=== PATIENT | male | born 1980 | race Two or more races ===

== ENCOUNTER 2023-07-29 11:21 | Outpatient (REF) | payer MEDICAID, OTHER, SELFPAY ==
[2023-07-29 13:26] LABS: MANUAL DIFF FLAG NO
[2023-07-29 13:41] LABS: Basophils Percent Auto 0.4 % (0-2); Eosinophils Absolute Auto 0.4 X10*3/uL (0.0-0.4); Eosinophils Percent Auto 5.6 % (0-4); Hematocrit 47.1 % (42.0-52.0); Hemoglobin 15.7 g/dl (14.0-18.0); Imm Gran Abs Auto 0.01 X10*3/uL (0.00-0.03); Imm Gran Pct Auto 0.1 % (0.0-0.4); Lymphocytes Absolute Auto 2.2 X10*3/uL (1.2-4.9); Lymphocytes Percent Auto 29.2 % (20-40); Mean Corpuscular HGB Conc 33.3 g/dl (31.0-36.0); Mean Corpuscular Hemoglobin 29.3 pg (27.0-33.0); Mean Platelet Volume 10.8 fL (9.4-12.4); Monocytes Absolute Auto 0.6 X10*3/uL (0.1-1.2); Monocytes Percent Auto 7.9 % (2-11); Neutrophils Absolute Auto 4.4 x10*3/uL (2.0-8.3); Neutrophils Percent Auto 56.8 % (45-73); Platelet Count 215 X10*3/uL (160-400); Red Blood Count 5.35 X10*6/uL (4.60-5.80); Red Cell Distribution Width 13.4 % (11.0-16.0); White Blood Count 7.7 X10*3/uL (4.8-10.8)
[2023-07-29 14:02] LABS: Alanine Aminotransferase 59 U/L (0-40); Albumin Level 4.6 g/dL (3.5-5.0); Alkaline Phosphatase 66 U/L (39-117); Anion Gap 10 (12-20); Aspartate Amino Transferase 28 U/L (5-37); Bilirubin Total 0.4 mg/dL (0.0-1.0); Blood Urea Nitrogen 13 mg/dL (9-16); Calcium 9.5 mg/dL (8.4-10.2); Carbon Dioxide 26 mmol/L (22-29); Chloride 109 mmol/L (96-108); Cholesterol 318 mg/dL (<200); Estimated Glomerular Filt Rate > 60; Glucose Random 101 mg/dL (60-115); HDL Cholesterol 73 mg/dL (>40); LDL Cholesterol Calculated 217 mg/dL (<100); Potassium 4.3 mmol/L (3.3-5.1); Sodium 141 mmol/L (135-145); Total Protein 7.8 g/dL (6.5-8.0); Triglycerides 140 mg/dL (<150)
[2023-07-30 07:59] LABS: HIV AB/AG Nonreactive (Nonreactive); HIV Num 1 0.05 S/CO (0.00-0.99); ~HepC Num1 0.07 S/CO (0.00-0.79); ~Hepatitis C Antibody Nonreactive (Nonreactive)
== END 2023-07-29 11:22 | disposition home or self-care (01) ==
LOC: HO.HHCL 11:21
PROVIDERS: Visit Provider Internal Medicine Geriatric Medicine
DX: Z00.00 Encounter for general adult medical examination without abnormal findings (principal); Z11.59 Encounter for screening for other viral diseases; Z11.4 Encounter for screening for human immunodeficiency virus [HIV]; Z13.6 Encounter for screening for cardiovascular disorders
CPT/HCPCS: 36415; 80053; 80061; 85025; 86803; 87389

== ENCOUNTER 2023-08-13 10:09 | Emergency (ER) | payer MEDICAID, OTHER, SELFPAY ==
--- NOTE | ~2023-08-13 | XR_ITS ---
EXAMINATION: XR HIP, LEFT CLINICAL INFORMATION: Pain, left hip. COMPARISON: None available. TECHNIQUE: Two views of the left hip. FINDINGS: No fracture or subluxation. Mild joint space narrowing and subcortical sclerosis in both hips. Small well-corticated os acetabula in the superolateral left hip. Symmetric SI joints. Pubic symphysis and pelvic ring are maintained. No significant soft tissue abnormality. XR/XR hip LT min 2V IMPRESSION: 1. No fracture or subluxation. 2. 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
[2023-08-13 10:19] VITALS: BP 147/92; PULSE 75; RESP 18; TEMP 36.3; O2SAT 98; BMI 25.2
[2023-08-13 12:27] LABS: MANUAL DIFF FLAG NO
[2023-08-13 12:28] LABS: Basophils Percent Auto 0.4 % (0-2); Eosinophils Absolute Auto 0.3 X10*3/uL (0.0-0.4); Eosinophils Percent Auto 3.8 % (0-4); Hematocrit 45.9 % (42.0-52.0); Hemoglobin 15.4 g/dl (14.0-18.0); Imm Gran Abs Auto 0.02 X10*3/uL (0.00-0.03); Imm Gran Pct Auto 0.3 % (0.0-0.4); Lymphocytes Absolute Auto 2.4 X10*3/uL (1.2-4.9); Lymphocytes Percent Auto 30.6 % (20-40); Mean Corpuscular HGB Conc 33.6 g/dl (31.0-36.0); Mean Corpuscular Hemoglobin 29.3 pg (27.0-33.0); Mean Corpuscular Volume 87.4 fL (80.0-98.0); Mean Platelet Volume 10.1 fL (9.4-12.4); Monocytes Absolute Auto 0.6 X10*3/uL (0.1-1.2); Monocytes Percent Auto 8.3 % (2-11); Neutrophils Absolute Auto 4.4 x10*3/uL (2.0-8.3); Neutrophils Percent Auto 56.6 % (45-73); Platelet Count 209 X10*3/uL (160-400); Red Blood Count 5.25 X10*6/uL (4.60-5.80); Red Cell Distribution Width 13.4 % (11.0-16.0); White Blood Count 7.7 X10*3/uL (4.8-10.8)
[2023-08-13 12:29] LABS: Appearance Urine Clear; Color Urine Yellow; Glucose Urine UA Negative (Negative); Leukocyte Esterase Urine Trace (Negative); Nitrite Urine Negative (Negative); PH 6.5 (5.0-9.0); UMIC TRIGGER UACC YES; Urine Blood Negative (Negative); Urine Ketones Negative (Negative); Urine Protein Negative (Neg-Trace)
[2023-08-13 12:40] LABS: Bacteria Urine None Seen (None Seen); Hyaline Casts Urine 0-2 /LPF (0-2); RBC Urine 0-2 /HPF (0-2); Squamous Epithelial Cell Urine 0-2 /HPF (0-2); WBC Urine 0-5 /HPF (0-5)
[2023-08-13 12:41] LABS: Alanine Aminotransferase 31 U/L (0-40); Albumin Level 4.5 g/dL (3.5-5.0); Alkaline Phosphatase 70 U/L (39-117); Anion Gap 12 (12-20); Aspartate Amino Transferase 20 U/L (5-37); Bilirubin Total 0.5 mg/dL (0.0-1.0); Blood Urea Nitrogen 10 mg/dL (9-16); Calcium 9.5 mg/dL (8.4-10.2); Carbon Dioxide 24 mmol/L (22-29); Chloride 108 mmol/L (96-108); Creatinine Clr Calc Pharmacy 122.5; Estimated Glomerular Filt Rate > 60; Glucose Random 103 mg/dL (60-115); Potassium 4.2 mmol/L (3.3-5.1); Sodium 140 mmol/L (135-145); Total Protein 7.7 g/dL (6.5-8.0)
--- NOTE | 2023-08-13 21:15 | ED.EXTPRO ---
HPI - Extremity Problem General Chief complaint: Abdominal Pain Stated complaint: L Inguinal Pain Time Seen by Provider: 08/13/23 20:54 Source: patient Mode of arrival: ambulatory Limitations: no limitations History of Present Illness HPI Narrative: Patient complaining of atraumatic pain in his left groin area for last 2 days increases on ambulation no swelling or testicular pain no fever no chills Related Data Previous Rx's Medication Instructions Recorded cyclobenzaprine 10 mg tablet 10 mg PO Q8H #20 tabs 08/13/23 ibuprofen 600 mg tablet 600 mg PO Q6H PRN fever or pain 08/13/23 #30 tabs Allergies Allergy/AdvReac Type Severity Reaction Status Date / Time No Known Allergies Allergy Verified 08/13/23 10:26 Review of Systems Review of Systems: Yes all other systems are reviewed and are negative [facility] Social History Social History Alcohol intake: current Alcohol intake frequency: 0-2 drinks per day Alcohol type: beer Smoked in Last 30 Days: Yes Use of substances other than those prescribed or required for medical reasons: No Advance Directives: No Advance Directives Information Provided: No Physical Exam Vital Signs: Vital Signs: Last Vital Signs Temp 98.1 F 08/13/23 21:39 Pulse 71 08/13/23 21:39 Resp 16 08/13/23 22:00 BP 122/87 08/13/23 21:39 Pulse Ox 97 08/13/23 21:39 O2 Del Method Room Air 08/13/23 21:39 BMI result Body Mass Index 25.2 Appearance: Alert. Oriented X3. No acute distress. Eyes: No pallor ENT: Pharynx normal. Oral Mucosa moist Neck: Normal inspection. Neck supple. CVS: Normal heart rate and rhythm. Pulses normal. Respiratory: No respiratory distress. Equal air entry bilateral, no wheezing/rales/rhonchi Abdomen: Soft and nontender. Bowel sounds are present, no mass palpable, no CVA tenderness : Normal scrotum and testicles no hernia Skin: Skin warm and dry. Normal skin color. Normal skin turgor. Extremities: No lower extremity edema. No calf tenderness tenderness in left groin area no swelling increases on flexion of the left hip Neuro: Oriented X 3. No motor deficit. No sensory deficit.No cerebellar signs , cranial nerves II-XII intact Medications Administered Discontinued Medications Generic Name Dose Route Start Last Admin Trade Name Mar PRN Reason Stop Dose Admin Cyclobenzaprine HCl 10 mg 08/13/23 21:18 08/13/23 21:36 Cyclobenzaprine Hcl 10 Mg Tablet PO 08/13/23 21:19 10 mg ONCE ONE Administration Ketorolac Tromethamine 60 mg 08/13/23 21:16 08/13/23 21:36 Ketorolac Tromethamine 60 Mg/2 Ml Vial IM 08/13/23 21:17 60 mg ONCE ONE Administration Medical Decision Making Medical Decision Making [facility] Narrative: Patient with left groin strain clinically no history of trauma no signs of infection symptoms improved after Toradol will discharge patient home on ibuprofen and Flexeril x-ray negative for significant abnormality Differential Diagnosis Differential Diagnoses: The differential diagnosis associated with the presentation includes Lab Data [facility] Lab Attestation statement: I reviewed the patient's lab results. 08/13/23 12:11 08/13/23 12:11 Labs: Lab Results 08/13/23 Range/Units 12:11 WBC 7.7 (4.8-10.8) X10*3/uL RBC 5.25 (4.60-5.80) X10*6/uL Hgb 15.4 (14.0-18.0) g/dl Hct 45.9 (42.0-52.0) % MCV 87.4 (80.0-98.0) fL MCH 29.3 (27.0-33.0) pg MCHC 33.6 (31.0-36.0) g/dl RDW 13.4 (11.0-16.0) % Plt Count 209 (160-400) X10*3/uL MPV 10.1 (9.4-12.4) fL Immature Gran % (Auto) 0.3 (0.0-0.4) % Neut % (Auto) 56.6 (45-73) % Lymph % (Auto) 30.6 (20-40) % Glynn % (Auto) 8.3 (2-11) % Eos % (Auto) 3.8 (0-4) % Baso % (Auto) 0.4 (0-2) % Lymph # (Auto) 2.4 (1.2-4.9) X10*3/uL Glynn # (Auto) 0.6 (0.1-1.2) X10*3/uL Eos # (Auto) 0.3 (0.0-0.4) X10*3/uL Baso # (Auto) 0.0 (0.0-0.2) X10*3/uL Abs Immat Gran (auto) 0.02 (0.00-0.03) X10*3/uL Absolute Neuts (auto) 4.4 (2.0-8.3) x10*3/uL Absolute Nucleated RBC 0.000 (0.0-0.012) X10*3/uL Nucleated RBC % (auto) 0.0 (0.0-0.2) /100WBC Sodium 140 (135-145) mmol/L Potassium 4.2 (3.3-5.1) mmol/L Chloride 108 (96-108) mmol/L Carbon Dioxide 24 (22-29) mmol/L Anion Gap 12 (12-20) BUN 10 (9-16) mg/dL Creatinine 0.76 (0.5-1.4) mg/dL Estim Creat Clear Calc 122.5 Estimated GFR > 60 Random Glucose 103 (60-115) mg/dL Calcium 9.5 (8.4-10.2) mg/dL Total Bilirubin 0.5 (0.0-1.0) mg/dL AST 20 (5-37) U/L ALT 31 (0-40) U/L Alkaline Phosphatase 70 (39-117) U/L Total Creatine Kinase 195 H (38-174) U/L C-Reactive Protein 0.81 H (< or = 0.50) mg/dL Total Protein 7.7 (6.5-8.0) g/dL Albumin 4.5 (3.5-5.0) g/dL Urine Color Yellow Urine Appearance Clear Urine pH 6.5 (5.0-9.0) Ur Specific [place] 1.010 (1.005-1.025) Urine Protein Negative (Neg-Trace) mg/dL Urine Glucose (UA) Negative (Negative) mg/dL Urine Ketones Negative (Negative) mg/dL Urine Blood Negative (Negative) Urine Nitrite Negative (Negative) Ur Leukocyte Esterase Trace H (Negative) Urine RBC 0-2 (0-2) /HPF Urine WBC 0-5 (0-5) /HPF Ur Squamous Epith Cells 0-2 (0-2) /HPF Urine Bacteria None Seen (None Seen) Hyaline Casts 0-2 (0-2) /LPF Independent Interpretation I performed an independent interpretation of an: Plain X-Ray Radiology Impression Discussion of test interpretation with radiology: I have reviewed the radiologist's reading. Discharge Plan Discharge Clinical Impression: Strain of left psoas muscle Patient Disposition: Home, Self-Care Instructions: Groin Strain (ED) Additional Instructions: Apply ice packs Ibuprofen and muscle relaxant as prescribed Rest your left leg avoid going on stairs till heals completely Prescriptions: New cyclobenzaprine 10 mg tablet 10 mg PO Q8H Qty: 20 0RF ibuprofen 600 mg tablet 600 mg PO Q6H PRN (Reason: fever or pain) Qty: 30 0RF Stand Alone Forms: Work/School Release
[2023-08-13] MEDS: Ketorolac Tromethamine 60 MG/2 ML VIAL IM (21:36)
[2023-08-13] MEDS: Cyclobenzaprine HCl 10 MG TABLET PO (21:36)
[2023-08-13 21:39] VITALS: BP 122/87; PULSE 71; RESP 16; TEMP 36.7; O2SAT 97
[2023-08-13 21:48] LABS: C Reactive Protein 0.81 mg/dL (< or = 0.50)
[2023-08-13 22:00] VITALS: RESP 16
[2023-08-14] MEDS: oxyCODONE HCl Immed Release 5 MG TABLET 10 MG PO (00:02)
--- NOTE | 2023-08-14 00:02 | PC.NURSE ---
ASSUMED CARE OF PT AT 0932
[2023-08-14 00:04] VITALS: BP 140/96; PULSE 79; RESP 18; TEMP 36.4; O2SAT 96
== END 2023-08-14 00:13 | disposition home or self-care (01) ==
PROVIDERS: Emergency Provider Internal Medicine; PCP Internal Medicine Geriatric Medicine
DX: S39.011A Strain of muscle, fascia and tendon of abdomen, initial encounter (principal); M25.552 Pain in left hip; X58.XXXA Exposure to other specified factors, initial encounter; Y93.9 Activity, unspecified; Y92.9 Unspecified place or not applicable; Y99.8 Other external cause status; Z79.899 Other long term (current) drug therapy
CPT/HCPCS: 36415; 73502; 80053; 81001; 82550; 85025; 86140; 96372; 99284; J1885

== ENCOUNTER 2025-02-03 11:34 | Outpatient (REF) | payer MEDICAID, OTHER, SELFPAY ==
--- NOTE | ~2025-02-03 | XR_ITS ---
EXAMINATION: XR SHOULDER, LEFT CLINICAL INFORMATION: 8 days of pain and decreased range of motion after trauma COMPARISON: None available. TECHNIQUE: AP external rotation, Grashey, scapular Y, and axillary views of the left shoulder. FINDINGS: No acute cortical disruption or malalignment. No lytic or blastic lesions. No metallic or radiopaque foreign body. No soft tissue calcifications. XR/XR shoulder LT min 2V IMPRESSION: Normal x-ray left shoulder. Electronically signed by: Jong Brown MD 02/03/2025 01:59 PM EDT
--- OUTSIDE RECORDS SUMMARY | 2025-02-03 10:45 | XMS_ITS | Encounter Summary ---
Author Organization [employer] Address [address] [place] [address] [address] [place] [address] Care Team Providers Care Home Care Manager Name Role Phone Elmer Arrintgon MD Primary Care Provider [phone] Reason for Referral * Consultation (Routine) - Authorized Specialty Diagnoses / Procedures Referred By Dayo gee Referred To Contact Behavioral Health Diagnoses Chronic anxiety Elmer Arrington MD [address] [place] [id number] Phone: tel: fax: Referral ID Status Reason Start Date Expiration Date Visits Requested Visits Authorized [id number] Authorized Specialty Services Required 02/03/2025 02/03/2026 1 1 Reason for Visit * Reason Comments Follow-up Encounter Details Date Type Department Care Team (Late st Contact Info) Description 02/03/2025 10:45 AM EDT Office Visit [facility] MEDICINE [address] [place] [address] [phone] Elmer Arrington MD [address] [place] [address] High cholesterol (Primary Dx); Left shoulder pain, unspecified chronicity; Chronic anxiety Social History Tobacco Use Types Packs/Day Years Used Date Smoking Tobacco: Every Day Cigarettes Smokeless Tobacco: Never Tobacco Cessation:Ready to Q uit: Not Asked; Counseling Given: Not Answered Alcohol Use Standard Drinks/Week Comments Yes 0 (1 standard drink = 0.6 oz pur e alcohol) social Alcohol Answer Date Recorded How often do you have a drink containing alcohol ? 0 02/03/2025 How many drinks containing a lcohol do you have on a typical day when you are drinking? 1 02/03/2025 How often do you have six or more drinks on one occasion? 0 02/03/2025 Depression Answer Date Recorded Patient Health Questionnaire-9 Score 5 09/18/2024 Patient Health Questionnaire-9 Score 5 09/18/2024 Last PHQ-9: Questionnaire Data Not on file 0 09/18/2024 Housing Stability Answer Date Recorded What is your housing situation today? I have housing today, but I am worried about losing housing in the future 09/18/[address] you li ve. Do you have problems with any of the following? Oven or stove not working 09/18/2024 Food Insecurity Answer Date Recorded Within the past 12 months, y ou worried that your food would run out before you got money to buy more: Sometimes True 2024 Within the past 12 months,th e food you bought just didn't last and you didn't have enough money to get more: Sometimes True 09/18/2024 Transportation Answer Date Recorded In the past 12 months, has l ack of transportation kept you from medical appts, meetings, work or from getting things needed for daily living? Yes, it has kept me from non-medical meetings, work, or getting things that I need 09/18/2024 Utilities Answer Date Recorded In the past 12 months, has t he electric, gas, oil or water company threatened to shut off services in your home? I am not sure 09/18/2024 Depression Answer Date Recorded Patient Health Questionnaire-2 Score 2 09/18/2024 Internet Access Answer Date Recorded Internet Access Q1 No 09/18/2024 Internet Access Q2 Not on file 09/18/2024 Sex and Gender Information Value Date Recorded Sex Assigned at Male 03/26/2022 10:18 AM EDT Legal Sex Male 10:18 AM EDT Gender Identity Male 03/26/2022 10:18 AM EDT Sexual Orientation Choose not to disclose 2021 10:18 AM EDT documented as of this encounter Last Filed Vital Signs Vital Sign Reading Time Taken Comments Blood Pressure 124/82 02/03/2025 11:00 AM EDT Pulse 75 02/03/2025 11:00 AM EDT Temperature 36.2 C (97.1 F) 02/03/2025 11:00 AM EDT Respiratory Rate 14 02/03/2025 11:0 0 AM EDT Oxygen Saturation 98% 02/03/2025 11: 00 AM EDT Inhaled Oxygen Concentration - - Weight 94.3 kg (207 lb 12.8 oz) 025 11:00 AM EDT Height 172.7 cm (5' 8 ) 02/03/2025 11:0 0 AM EDT Body Mass Index 31.6 02/03/2025 11:00 AM EDT documented in this encounter Progress Notes * Elmer Arrington, - 02/03/2025 10:45 AM EDT Subjective Patient ID: Duy Brown is a 44 y.o. male who presents for Follow-up. Patient is returning to medical care. I have not seen him in more than a year. The patient has a past medical history of asthma, smoking, high cholesterol and anxiety. The patient tells me that he cut down on the smoking significantly and is down to 2 or 3 cigarettes/day and his asthma symptoms have resolved almost completely. He stopped using atorvastatin and his LDL just to be above 200 in the past. He has blood work pending that he is recommended to do to recheck his CMP and lipids. He complains of 1 week of left shoulder pain after a fall. He does not have any swelling. No left shoulder deformity. He has slight decreased range of motion of the left shoulder since the fall. He complains of intense anxiety. The patient has requested a letter to be permitted to keep his 2 emotional support pet dogs in his apartment. Review of Systems Constitutional: Negative for chills, fatigue and fever. HENT: Negative for sore throat. Respiratory: Negative for cough, chest tightness and shortness of breath. Cardiovascular: Negative for chest pain, palpitations and leg swelling. Gastrointestinal: Negative for abdominal pain and blood in stool. Musculoskeletal: See HPI Psychiatric/Behavioral: The patient is nervous/anxious. Objective Vitals: 02/03/25 1100 BP: 124/82 BP Location: Left arm Patient Position: Sitting BP Cuff Size: Large adult Pulse: 75 Resp: 14 Temp: 97.1 ??F (36.2 ??C) TempSrc: Temporal SpO2: 98% Weight: 207 lb 12.8 oz (94.3 kg) Height: 5' 8 (1.727 m) Physical Exam Constitutional: Appearance: Normal appearance. Cardiovascular: Rate and Rhythm: Normal rate and regular rhythm. Heart sounds: No murmur heard. Pulmonary: Effort: Pulmonary effort is normal. No respiratory distress. Breath sounds: No wheezing, rhonchi or rales. Abdominal: Palpations: Abdomen is soft. Tenderness: There is no abdominal tenderness. Musculoskeletal: Right shoulder: Normal. Left shoulder: Tenderness present. No swelling, deformity, effusion or laceration. Decreased range of motion. Right lower leg: No edema. Left lower leg: No edema. Neurological: Mental Status: He is alert. Assessment/Plan Diagnoses and all orders for this visit: High cholesterol Comments: I recommended to go for the blood work ordered for him back in August. I explained the patient that I will restart him on statin for primary prevention of cardiovascular disease if needed based on theresults. Left shoulder pain, unspecified chronicity Comments: I suspect left shoulder sprain. I prescribed naproxen to use as needed and recommended evaluation with x-ray of the left shoulder. Orders: - XR Shoulder 2+ Views Left; Future Chronic anxiety Comments: Referral to behavioral health and letter for landlord so the patient can keep his 2 pet dogs. Orders: - Referral to Behavioral Health; Future Other orders - naproxen (Naprosyn) 500 MG tablet; Take 1 tablet (500 mg) by mouth 2 times daily. Future Appointments Date Time Provider Department Center 05/31/2025 3:00 PM Ann JAMISON DENT [facility] documented in this encounter Plan of Treatment Upcoming Encounters Date Type Department Care Team (Late st Contact Info) Description 05/31/2025 3:00 PM EST Office Visit [facility] ADULT DENTAL [address] [place] [address] Ann Quinonez [address] [place] [address] Scheduled Referrals Name Type Priority Associated Diagnoses Order Schedule Referral to Behavioral Health Outpatient Referral Routine Chronic anxiety Expected: 02/03/2025 (Approximate), Expires: 08/03/2026 documented as of this encounter Procedures Procedure Name Priority Date/Time Associated Diagnosis Comments XR SHOULDER 2+ VIEWS LEFT Routine 02/03/2025 1:50 PM EDT Left shoulder pain, unspecified chronicity documented in this encounter Results * XR Shoulder 2+ Views Left (02/03/2025 1:50 PM EDT) Anatomical Region Laterality Modality Upper Extremities, Shoulder Left Radi ographic Imaging 02/03/2025 1:50 PM EDT Narrative 02/03/2025 2:02 PM EDT [address] [address] XRay Report Signed Patient: Duy Sheppard MR# : [id number] : 1980 Acct:[id number] Age/Sex: 44 / M ADM Date: 02/03/25 Loc: [facility] Attending Dr: Elmer Arrington MD Ordering Physician: Elmer Arrington MD Date of Service: 02/03/25 Procedure(s): XR shoulder LT min 2V Accession Number(s): [id number] cc: Elmer Arrington MD Reason for Exam: 8 days of pain and decreased range of motion after trauma EXAMINATION: XR SHOULDER, LEFT CLINICAL INFORMATION: 8 days of pain and decreased range of motion after trauma COMPARISON: None available. TECHNIQUE: AP external rotation, Grashey, scapular Y, and axillary views of the left shoulder. FINDINGS: No acute cortical disruption or malalignment. No lytic or blastic lesions. No metallic or radiopaque foreign body. No soft tissue calcifications. XR/XR shoulder LT min 2V IMPRESSION: Normal x-ray left shoulder. Electronically signed by: Jong Brown MD 02/03/2025 01:59 PM EDT Dictated By: Jong Shrestha MD Signed By: <Electronically signed by Jong Mendez MD in OV> 02/03/25 1359 DD/ 1350 TD/TT: 02/03/25 1353 Service Writer Advisor: Procedure Note Donotuseinterpreter, Image - 02/03/2025 [facility] [address] [place] [address] XRay Report Signed Patient: Duy Sheppard [facility]# : [id number] : 1980Acct:[id number] Age/Sex: 44 / MADM Date: 02/03/25 Loc: [facility] Attending Dr: Elmer Arrington MD Ordering Physician: Elmer Arrington MD Date of Service: 02/03/25 Procedure(s): XR shoulder LT min 2V Accession Number(s): [id number] cc: Elmer Arrington MD Reason for Exam: 8 days of pain and decreased range of motion aftertrauma EXAMINATION: XR SHOULDER, LEFT CLINICAL INFORMATION: 8 days of pain and decreased range of motion after trauma COMPARISON: None available. TECHNIQUE: AP external rotation, Grashey, scapular Y, and axillary views of the left shoulder. FINDINGS: No acute cortical disruption or malalignment. No lytic or blastic lesions. No metallic or radiopaque foreign body. No soft tissue calcifications. XR/XR shoulder LT min 2V IMPRESSION: Normal x-ray left shoulder. Electronically signed by: Jong Brown MD 02/03/2025 01:59 PM EDT RP Dictated By: Jong Shrestha MD Signed By: <Electronically signed by Jong Mendez MDin OV> 02/03/25 1359 DD/ 1350 TD/TT: 02/03/25 1353 Service Writer Advisor: Elmer Arrington MD IMG XR PROCEDURES Final Result documented in this encounter Visit Diagnoses Diagnosis High cholesterol- Primary Pure hypercholesterolemia Left shoulder pain, unspecified chronicity Chronic anxiety Anxiety state, unspecified documented in this encounter Additional Health Concerns Assessment Noted Time PHQ-9 Depression Total Score: 5 09/19/19 25 11:00 AM EDT documented as of this encounter Care Teams Home Care Manager Relationship Specialty Start Date End Date Elmer Arrington MD [address] [place] [address] PCP - General Family Medicine 08/30/15 documented as of this encounter
[2025-02-03 14:20] LABS: Alanine Aminotransferase 45 U/L (0-40); Albumin Level 4.5 g/dL (3.5-5.0); Alkaline Phosphatase 66 U/L (39-117); Anion Gap 13 (12-20); Aspartate Amino Transferase 33 U/L (5-37); Blood Urea Nitrogen 14 mg/dL (9-16); Calcium 8.9 mg/dL (8.4-10.2); Carbon Dioxide 25 mmol/L (22-29); Chloride 107 mmol/L (96-108); Cholesterol 307 mg/dL (<200); Estimated Glomerular Filt Rate > 60; HDL Cholesterol 68 mg/dL (>40); Potassium 4.3 mmol/L (3.3-5.1); Sodium 141 mmol/L (135-145); Total Protein 7.4 g/dL (6.5-8.0); Triglycerides 149 mg/dL (<150)
--- OUTSIDE RECORDS SUMMARY | 2025-02-03 14:46 | XMS_ITS | Encounter Summary ---
Author Organization [employer] Address [address] [place] [address] Care Team Providers Care Nurses Superintendent Name Role Phone Name, Elmer MEDINA Primary Care Provider [phone] Encounter Details Date Type Department Care Team (Latest Contact Info) Description 02/03/2025 Travel Social History Tobacco Use Types Packs/Day Years Used Date Smoking Tobacco: Every Day Cigarettes Smokeless Tobacco: Never Alcohol Use Standard Drinks/Week Comments Yes 0 [...] AM EDT documented as of this encounter Plan of Treatment Upcoming Encounters Date Type Department Care Team (Late st Contact Info) Description 05/31/2025 3:00 PM EST Office Visit [facility] ADULT DENTAL [address] [place] [address] DeviChristianAnn [address] [place] [address] documented as of this encounter Visit Diagnoses Not on filedocumented in this encounter Additional Health Concerns Assessment Noted Time PHQ-9 Depression Total Score: 5 09/19/19 25 11:00 AM EDT documented as of this encounter Care Teams Nurses Superintendent Relationship Specialty Start Date End Date Name, MD Elmer [address] [place] [address] PCP - General Family Medicine 08/30/15 documented as of this encounter
--- OUTSIDE RECORDS SUMMARY | 2025-02-03 14:46 | XMS_ITS | Clinical Summary ---
Author Organization [facility] Address [address] [place] [phone] Phone Care Team Providers Care Home Connect Lpn Name Role Phone Unknown, Unknown Primary Care Provider Angelique navas Allergies No known active allergies Medications No known medications Immunizations Immunization Administration Dates Next Due Tdap 10/27/2024 Social History Tobacco Use Types Packs/Day Years Used Date Smoking Tobacco: Every Day Smokeless Tobacco: Never Alcohol Use Standard Drinks/Week Comments Yes 0 (1 standard drink = 0.6 oz pur e alcohol) Education Answer Date Recorded Are you interested in more education? Not on morenita e 10/28/2024 Are you concerned about learning? Not on file 10/28/2024 No 10/28/2024 No 10/28/2024 Digital Access Answer Date Recorded No 10/28/2024 No 10/28/2024 Reliable internet access at home? Not on file 10/28/2024 Device with a working camera? Not on file Intimate Partner Violence Answer Date R ecorded Are you denied basic needs s uch as food, clothing, or medical care? No 10/27/2024 In the past 12 months have y ou been in a relationship with a person who hurts, threatens, or tries to control you? No 10/27/2024 Are you denied basic needs s uch as food, clothing, or medical care? No 10/27/2024 In the past 12 months have y ou been in a relationship with a person who hurts, threatens, or tries to control you? No 10/27/2024 Sex and Gender Information Value Date Recorded Sex Assigned at Male 10/05/2017 1:07 PM EDT Legal Sex Male 10:29 PM EDT Gender Identity Male 10/05/2017 1:07 PM EDT Sexual Orientation Straight 10/05/2017 1: 07 PM EDT Last Filed Vital Signs Vital Sign Reading Time Taken Comments Blood Pressure 139/94 10/27/2024 10:03 PM EDT Pulse 94 10/27/2024 10:03 PM EDT Temperature 36.4 C (97.5 F) 10/27/2024 10:03 PM EDT Respiratory Rate 18 10/27/2024 10:03 PM EDT Oxygen Saturation 95% 10/27/2024 10:03 PM EDT Inhaled Oxygen Concentration - - Weight 81.6 kg (180 lb) 10/27/2024 10:03 PM EDT Height 180.3 cm (5' 11 ) 10/27/2024 10:03 PM EDT Body Mass Index 25.1 10/27/2024 10:03 PM EDT Plan of Treatment Health Maintenance Due Date Last Done Comments DEPRESSION SCREENING 1992 SMOKING Hx and SMOKELESS TOBACCO SCREENING 1993 HEPATITIS C SCREENING 1998 HIV ONE-TIME SCREENING (18-6 5 YEARS) 1998 PNEUMOCOCCAL VACCINES (0-49 years) (2 of 2 - PCV) 07/08/2018 07/08/2017 SCREENING FOR DIABETES 08/06/2021 08/06/2018 INFLUENZA VACCINE (#1) 2024 COVID-19 VACCINE (1 - 2023-2 5 season) 2025 LIPID PANEL 07/28/2028 07/29/2023 Adult Td,Tdap Booster 10/27/2034 10/27/2024 , 05/07/2016 HEPATITIS A VACCINES Aged Out No long er eligible based on patient's age to complete this topic HIB VACCINES Aged Out No longer eligi ble based on patient's age to complete this topic MENINGOCOCCAL VACCINES (ACWY) Aged Out No longer eligible based on patient's age to complete this topic MENINGOCOCCAL VACCINES (B) Aged Out N o longer eligible based on patient's age to complete this topic Medical Devices Not on file [place] [employer] [place] [facility] NET [place]ULL [place] [facility] SAFET[facility] NET FULL [place] [employer] [place] F[place] [facility] NET [facility]ULL [facility] SAFETY NET FULL [place] [employer] SAFETY NET FULL [place] [employer] NET FULL [facility] LIMITED FULL Care Teams Home Connect Lpn Relationship Specialty Start Date End Date Unknown, Unknown, PCP - General 08/05/18 Additional Source Comments The information contained in this document represents components of the legal health record. It is not the complete legal health record.[facility]
--- OUTSIDE RECORDS SUMMARY | 2025-02-03 14:46 | XMS_ITS | Encounter Summary ---
Author Organization [employer] [facility] Address [address] [place] [address] [address] [place] [address] Care Team Providers Care Nitrating Acid Mixer Name Role Phone NameElmer MD Primary Care Provider [phone] Reason for Visit * Reason Comments Med Refill Encounter Details Date Type Department Care Team (Late st Contact Info) Description 06/26/2022 Refill [facility] MEDICINE [address] [place] [address] Name, MD Elmer [address] [place] [address] Asthma, unspecified asthma severity, unspecified whether complicated, unspecified whether persistent Social History Tobacco Use Types Packs/Day Years Used Date Smoking Tobacco: Never Assessed Sex and Gender Information Value Date Recorded [...] Description 05/31/2025 3:00 PM EST Office Visit [facility] ADULT DENTAL [address] [place] [phone] Christian Quinonezaris [address] [place] [address] documented as of this encounter Visit Diagnoses Diagnosis Asthma, unspecified asthma severity, unspecified whether complicated, unspecified whether persistent documented in this encounter Care Teams Nitrating Acid Mixer Relationship Specialty Start Date End Date Name, MD Elmer [address] [place] [address] PCP - General Family Medicine 08/30/15 documented as of this encounter
--- OUTSIDE RECORDS SUMMARY | 2025-02-03 14:46 | XMS_ITS | Encounter Summary ---
Author Organization [employer] Address [address] [place] [address] [address]t [place] [address] Care Team Providers Care Solar Tech Name Role Phone Name, Elmer MEDINA Primary Care Provider [phone] Encounter Details Date Type Department Care Team (Late st Contact Info) Description 08/22/2022 Abstract [facility] ADULT DENTAL [address] [place], [place] [phone] Devi Ann [address] [place] [address] Social History Tobacco Use Types Packs/Day Years Used Date Smoking Tobacco: Former Cigarettes Smokeless Tobacco: Never Depression Answer Date Recorded Patient Health Questionnaire-9 Score 0 07/19/2022 Depression Answer Date Recorded Patient Health Questionnaire-2 Score 0 07/19/2022 Sex and Gender Information Value Date Recorded Sex Assigned at Male 03/26/2022 10:18 AM EDT Legal Sex Male 10:18 AM EDT Gender Identity Male 03/26/2022 10:18 AM EDT Sexual Orientation Choose not to disclose 2021 10:18 AM EDT COVID-19 Exposure Response Date Recorded In the last 10 days, have yo u been in contact with someone who was confirmed or suspected to have Coronavirus/COVID-19? No / Unsure 07/26/2022 9:03 AM EST documented as of this encounter Plan of Treatment Upcoming Encounters Date Type Department Care Team (Late st Contact Info) Description 05/31/2025 3:00 PM EST Office Visit [facility] ADULT DENTAL [address] [place], [place] [phone] Devi Ann [address] [place] [address] documented as of this encounter Visit Diagnoses Not on filedocumented in this encounter Additional Health Concerns Assessment Noted Time PHQ-9 Depression Total Score: 0 07/19/19 23 11:35 AM EST documented as of this encounter Care Teams Solar Tech Relationship Specialty Start Date End Date Name, MD Elmer [address] [place] [address] PCP - General Family Medicine 08/30/15 documented as of this encounter
--- OUTSIDE RECORDS SUMMARY | 2025-02-03 14:46 | XMS_ITS | Encounter Summary ---
Author Organization [employer] Address [address] [facility] 7t [place] [address] Care Team Providers Care Health Physics Technician Name Role Phone Name, Elmer MEDINA Primary Care Provider [phone] Reason for Visit * Reason Onset Date Comments Chart Prep 02/01/2025 Encounter Details Date Type Department Care Team (Late st Contact Info) Description 02/01/2025 Telephone [facility] CHC MED & PEDS [address] [place], [place] [phone] Name, MD Elmer [address] [place] [address] Chart Prep Social History Tobacco Use Types Packs/Day Years Used Date Smoking Tobacco: Every Day Cigarettes Smokeless Tobacco: Never Alcohol Use Standard Drinks/Week Comments Yes 0 (1 standard drink = 0.6 oz pur e alcohol) social Depression Answer Date Recorded Patient Health Questionnaire-9 [...] AM EDT documented as of this encounter Miscellaneous Notes * Telephone Encounter - Nikko Leggett [place] - 02/01/2025 9:01 AM EDT Chart Prep Labs: done Images: not applicable Referrals: complete Vaccines due: Covid, Flu, and HPV Screenings: Alcohol/Substance Use Screening Overdue care gaps: SBIRT, Disability screen, and Tobacco documented in this encounter Plan of Treatment Upcoming Encounters Date Type Department Care Team (Late st Contact Info) Description 05/31/2025 3:00 PM EST Office Visit [facility] ADULT DENTAL [address] [place] [address] Ann Quinonez [address] [place] [address] documented as of this encounter Visit Diagnoses Not on filedocumented in this encounter Additional Health Concerns Assessment Noted Time PHQ-9 Depression Total Score: 5 09/19/19 25 11:00 AM EDT documented as of this encounter Care Teams Health Physics Technician Relationship Specialty Start Date End Date Name, MD Elmer [address] [place] [address] PCP - General Family Medicine 08/30/15 documented as of this encounter
--- OUTSIDE RECORDS SUMMARY | 2025-02-03 14:46 | XMS_ITS | Clinical Summary ---
Author Organization [employer] Address [address] [place] [address] 7t [place] [address] Care Team Providers Care Digital Project Manager Name Role Phone Name, Elmer MEDINA Primary Care Provider [phone] Allergies No known active allergies Medications albuterol 108 (90 Base) MCG/ACT inhalerIndicat ions:Asthma, unspecified asthma severity, unspecified whether complicated, unspecified whether persistent Inhale 2 puffs every 6 (six) hours if needed for wheezing. 18 g 3 06/24/19 25 Active naproxen (Naprosyn) 500 MG tablet Take 1 tablet (500 mg) by mouth 2 times daily. 20 tablet 02/04/20 25 025 Active nicotine (Nicoderm CQ) 14 MG/24HR patch Place 1 patch on the skin 1 (one) time each day at the same time. 42 patch 08/13/19 025 Discontinued nicotine (Nicoderm CQ) 7 MG/24HR patch Place 1 patch on the skin 1 (one) time each day at the same time. 14 patch 08/13/19 24 025 Discontinued nicotine polacrilex (Commit) 2 MG lozenge Dissolve 1 lozenge (2 mg) in the mouth if needed for smoking cessation. 100 lozenge 08/13/19 025 Discontinued(Th erapy completed) acetaminophen (Tylenol) 500 MG tablet Take 2 tablets (1,000 mg) by mouth every 6 (six) hours if needed for moderate pain or fever for up to 25 doses. 40 tablet 01/01/20 24 09/10/2 025 Discontinued Mometasone Furoate (Asmanex HFA) 100 MCG/ACT aerosolIndicat ions:Asthma, unspecified asthma severity, unspecified whether complicated, unspecified whether persistent Inhale 1 Act (100 mcg) 2 times daily. 13 g 06/24/19 025 Discontinued( erapy completed) fluticasone (Flonase) 50 MCG/ACT nasal sprayIndicatio ns:Seasonal allergic rhinitis, unspecified trigger Administer 1 spray into each nostril Once per day. 16 g 3 06/24/19 025 Discontinued( erapy completed) Spacer/Aero-Ho lding Chambers (OptiChamber Antoni[place]) misc 1 each every 4 (four) hours if needed (asthma). 1 each 06/24/19 025 Discontinued( erapy completed) ibuprofen 400 MG tablet Take 1 tablet (400 mg) by mouth every 6 (six) hours if needed for moderate pain or fever for up to 30 doses. 30 tablet 06/24/19 025 Discontinued( erapy completed) atorvastatin (Lipitor) 20 MG tabletIndicati ons:Hyperchole sterolemia Take 1 tablet (20 mg) by mouth Once per day. 30 tablet 11 09/19/19 025 Discontinued( erapy completed) cetirizine (ZyrTEC) 10 MG tabletIndicati ons:Seasonal allergic rhinitis, unspecified trigger Take 1 tablet (10 mg) by mouth Once per day. 90 tablet 3 09/19/19 025 Discontinued( erapy completed) naproxen (Naprosyn) 500 MG tablet Take 1 tablet (500 mg) by mouth 2 times daily. 20 tablet 02/04/20 025 Discontinued( erapy completed) Active Problems Problem Noted Date Diagnosed Date High cholesterol 02/03/2025 Bleeding gums 12/19/2023 Localized gingival recession 12/19/2023 Dental caries 12/19/2023 Missing teeth, acquired 12/19/2023 Umbilical hernia without obstruction or gangrene 08/26/2023 Overview (10/31/2023): Last Assessment & Plan: Fat-containing umbilical hernia, only mildly symptomatic. No history of bowel incarceration, and the risk of bowel incarceration is low. The overall risks of surgery (bleeding, bowel injury, pain from mesh and fixation sutures/tacks, mesh contamination/infection requiring explantation, creation of technical difficulty in gaining abdominal access for future surgeries in the presence of a piece of synthetic mesh in the umbilical area, etc.) with the potential benefit. Patient complains some abdominal tingling sensation, which is totally unrelated to the hernia. Following the above discussion, the patient is willing to continue watchful waiting and to wear an abdominal binder for comfort. Follow-up if the hernia enlarges significantly and/or becomes more symptomatic. Mild intermittent asthma without complication Tobacco user 07/29/2023 Seasonal allergic rhinitis 10/09/2022 Periodontal disease 07/26/2022 Dental calculus 07/26/2022 Umbilical hernia 07/19/2022 Pruritus 05/06/2017 Allergic rhinitis 10/25/2016 Anxiety 01/02/2016 Panic attack 01/02/2016 Resolved Problems Problem Noted Date Diagnosed Date Resolved Date Mild persistent allergic asthma 10/09/2022 07/29/2023 Bleeding gums 07/26/2022 07/29/2023 Rectal hemorrhage 08/13/2018 07/29/2023 Mild intermittent asthma 05/06/2017 Wheezing 10/25/2016 07/29/2023 Encounters Date Type Department Care Team Description 02/03/2025 10:45 AM EDT Office Visit [facility] MEDICINE [address] [place] [address] Elmer Arrington MD High cholesterol (Primary Dx); Left shoulder pain, unspecified chronicity; Chronic anxiety 02/03/2025 Travel 02/01/2025 Telephone [facility] CHC MED & PEDS [address] [place], [place] [phone] Elmer Arrington MD Chart Prep 12/10/2024 9:00 AM EDT Office Visit [facility] ADULT DENTAL [address] [place] [address] Ann Quinonez Localized gingival recession (Primary Dx); Dental calculus; Periodontal disease from Last 3 Months Immunizations Immunization Administration Dates Next Due Influenza Injectable Quadriv alant Preservative Free IIV4 MDCK 08/02/2023 Influenza injectable quadriv alent IIV4 with preservative 07/08/2017,03/01/2016 Influenza injectable quadrivalent preservative f ree 03/21/2021 Pneumococcal Conjugate PCV 20 07/29/2023 Pneumococcal Polysaccharide PPSV23 07/08/2017 Tdap 05/07/2016 Social History Tobacco Use Types Packs/Day Years [...] not to disclose 2021 10:18 AM EDT Last Filed Vital Signs Vital Sign [...] Mass Index 31.6 02/03/2025 11:00 AM EDT Plan of Treatment Upcoming Encounters Date Type Department Care Team (Late st Contact Info) Description 05/31/2025 3:00 PM EST Office Visit [facility] ADULT DENTAL [address] [place] [address] Devi, Ann [address] [place] [address] Health Maintenance Due Date Last Done Comments Family Planning (PISQ) 10/05/1995 HPV Vaccines (1 - Male 3-dose series) 10/05/1995 Dental Oral Exam 06/21/2024 12/19/2023 Dental Prophylaxis 06/21/2024 12/19/2023, 07/26/2022 Dental X-Ray: Full Mouth 10/20/2024 10/19/2021 Dental X-Ray: Bitewings 12/19/2024 12/19/2023 COVID-19 Vaccine ( - season) 2025 12/14/2020, 11/17/2020 Influenza Vaccine (#1) 2025 , 03/21/2021, 07/08/2017, Additional history exists Depression Screening 09/18/2025 09/18/2024, 09/19/19 Hepatitis B Vaccines (1 of 3 - 19+ 3-dose series) 09/18/2025 Postponed from 10/05/1999 (Patient Refused) SDOH Screening 09/18/2025 09/18/2024 Alcohol/Substance Use Screening 02/03/2026 02/03/2025 Disability Screening 02/03/2026 02/03/2025 Tobacco Screening 02/03/2026 02/03/2025 Lipid Panel 02/03/2030 02/03/2025, 07/29/2023 Zoster Vaccines (1 of 2) 2030 DTaP/Tdap/Td Vaccines (3 - Td or Tdap) 10/27/2034 10/27/2024, 05/07/2016 RSV Patients and Patients Aged 60 years or older (1 - 1-dose 75+ series) 10/05/2055 HIV Screening Completed 07/29/2023 Hepatitis C Screening Completed 07/29/2023 Pneumococcal Vaccine: Pediatrics (0 to 5 Years) and At-Risk Patients (6 to 49) Years Completed 07/29/2023, 07/08/2017 HIB Vaccines Aged Out No longer eligi ble based on patient's age to complete this topic Hepatitis A Vaccines Aged Out No long er eligible based on patient's age to complete this topic IPV Vaccines Aged Out No longer eligi ble based on patient's age to complete this topic Meningococcal B Vaccine Aged Out No l onger eligible based on patient's age to complete this topic Meningococcal Vaccine Aged Out No raghavendra anushka eligible based on patient's age to complete this topic RSV under 20 months Aged Out No longe r eligible based on patient's age to complete this topic Rotavirus Vaccines Aged Out No longer eligible based on patient's age to complete this topic Procedures Procedure Name Priority Date/Time Associated Diagnosis Comments XR SHOULDER 2+ VIEWS LEFT Routine 02/03/2025 1:50 PM EDT Left shoulder pain, unspecified chronicity COMPREHENSIVE METABOLIC PANEL Routine 02/03/2025 11:51 AM EDT Healthcare maintenance LIPID PANEL, STANDARD Routine 02/03/2025 11:51 AM EDT Healthcare maintenance CASE PRESENTATION, DETAILED AND EXTENSIVE TREATMENT PLANNING Routine 12/10/2024 9:00 AM EDT Localized gingival recession Dental calculus Periodontal disease ORAL HYGIENE INSTRUCTIONS Routine 12/10/2024 9:00 AM EDT Localized gingival recession Dental calculus Periodontal disease LR PERIODONTAL SCALING AND ROOT PLANING - 1 TO 3 TEETH PER QUADRANT Routine 12/10/2024 9:00 AM EDT Dental calculus Periodontal disease UR PERIODONTAL SCALING AND ROOT PLANING - 1 TO 3 TEETH PER QUADRANT Routine 12/10/2024 9:00 AM EDT Dental calculus Periodontal disease Full PROPHYLAXIS - ADULT Routine 12/19/2023 1:00 PM EDT Periodontal disease Bleeding gums Dental calculus BITEWINGS - 4 RADIOGRAPHIC IMAGES Routine 12/19/2023 1:00 PM EDT Periodontal disease Bleeding gums Localized gingival recession Dental calculus Dental caries PERIODIC ORAL EVALUATION - ESTABLISHED PATIENT Routine 12/19/2023 1:00 PM EDT HEPATITIS C ANTIBODY Routine 07/29/2023 11:24 AM EST Need for hepatitis C screening test HIV 1/2 ANTIGEN/ANTIBODY, FOURTH GENERATION W/RFL Routine 07/29/2023 11:24 AM EST Screening for HIV (human immunodeficiency virus) from Last 3 Months or Most Recently Relevant to Health Maintenance Results * XR Shoulder 2+ Views Left (02/03/2025 1:50 PM EDT) Anatomical Region Laterality Modality Upper Extremities, Shoulder Left Radi ographic Imaging 02/03/2025 1:50 PM EDT Narrative 02/03/2025 2:02 PM EDT [address] [address] XRay Report Signed Patient: Duy Sheppard MR# : [id number] : 1980 Acct:[id number] Age/Sex: 44 / M ADM Date: 02/03/25 Loc: HO.HH Attending Dr: Elmer Arrington MD Ordering Physician: Elmer Arrington MD Date of Service: 02/03/25 Procedure(s): XR shoulder LT min 2V Accession Number(s): [id number] cc: Elmer Arrington MD Reason for Exam: [...] 02/03/25 1359 DD/ 1350 TD/TT: 02/03/25 1353 Mail Room: Procedure Note Donotuseinterpreter, Image - 02/03/[address] [address] XRay Report Signed Patient: Duy Sheppard [facility]# : [id number] : 1980Acct:[id number] Age/Sex: 44 / MADM Date: 02/03/25 Loc: HO.HHCL Attending Dr: Elmer Arrington MD Ordering Physician: Elmer Arrington MD Date of Service: 02/03/25 Procedure(s): XR shoulder LT min 2V Accession Number(s): [id number] cc: Elmer Arrington MD Reason for Exam: [...] 02/03/25 1359 DD/ 1350 TD/TT: 02/03/25 1353 Mail Room: Elmer Arrington MD IMG XR PROCEDURES Final Result * (ABNORMAL) Lipid Panel, Standard (02/03/2025 11:51 AM EDT) Triglycerides 149 <150 mg/dL [facility] Comment:Desirable Triglyceri de: less than 150 mg/dLBorderline High Triglyceride 150-199 mg/dLHigh Triglyceride: 200-499 mg/dLVery High Triglyceride: greater than or equal to 5OO mg/dL Cholesterol 307(H) <200 mg/dL [facility] Comment:Desirable Cholestero l: less than 200 mg/dLBorderline High Cholesterol: 200-239 mg/dLHigh Cholesterol: greater than 239 mg/dL LDL Cholesterol Calculated 210(H) <100 mg/dL [facility] Comment:Desirable LDL: less than 100 mg/dLNear Optimal/Above Optimal LDL: 110- 129 mg/dLBorderline High LDL: 130-159 mg/dLHigh LDL: 160-189 mg/dLVery High LDL: greater than or equal to 190 mg/dL HDL Cholesterol 68 >40 mg/dL [facility] Comment:Desirable HDL: great er than 40 mg/dL Note: This HDL assay may give artificially low results in patients with liver disease. Blood Venous blood specimen / Unknown 02/03/2025 11:51 AM EDT 02/03/2025 1:47 PM EDT Chun Alexandre [employer] LAB BLOOD ORDERABLES Adelina l Result [facility] [address] [place] [phone] * (ABNORMAL) Comprehensive Metabolic Panel (02/03/2025 11:51 AM EDT) Sodium 141 135 - 145 mmol/L [facility] Potassium 4.3 3.3 - 5.1 mmol/L [facility] Chloride 107 96 - 108 mmol/L [facility] Carbon Dioxide 25 22 - 29 mmol/L [facility] Anion Gap 13 12 - 20 [facility] Urea Nitrogen (BUN) 14 9 - 16 mg/dL [facility] Creatinine, Serum 0.79 0.5 - 1.4 mg/dL [facility] Estimated Glomerular Filt Rate >60 [facility] Comment:Chronic Kidney Disea se: Estimated GFR < 60 mL/min/1.23c7Ewhant Kidney Disease: Estimated GFR < 15 mL/min/1.73m2 Glucose 101 60 - 115 mg/dL [facility] Calcium 8.9 8.4 - 10.2 mg/dL [facility] Bilirubin, Total 0.4 0.0 - 1.0 mg/dL [facility] Aspartate Amino Transferase 33 5 - 37 U/L [facility] Alanine Aminotransferase 45(H) 0 - 40 U/L [facility] Total Protein 7.4 6.5 - 8.0 g/dL [facility] Albumin Level 4.5 3.5 - 5.0 g/dL [facility] Alkaline Phosphatase 66 39 - 117 U/L [facility] Blood Venous blood specimen / Unknown 02/03/2025 11:51 AM EDT 02/03/2025 1:47 PM EDT [facility] LAB BLOOD ORDERABLES Adelina l Result [facility] [address] [place] [address] [phone] * Hepatitis C Ab (07/29/2023 11:24 AM EST) Pathologist [facility] Hepatitis C Antibody Nonreactive Nonreactive [facility] Comment:Antibodies to HCV no t detected; does not exclude early acuteHCV infection. Blood Venous blood specimen / Unknown 07/29/2023 11:24 AM EST 07/29/2023 1:21 PM EST us Elmer Arrington MD LAB BLOOD ORDERABLES Final Resul t Performing Organization Address City/[facility]/ZIP Co de Phone Number [facility] [address] [place] [phone] [phone] * HIV-1/2 Antigen and Antibodies, Fourth Generation, with Reflexes (07/29/2023 11:24 AM EST) HIV AB/AG Nonreactive Nonreactive [facility] Comment:HIV-1 p24 Ag and/or HIV-1/HIV-2 Ab not detected.A test result that is nonreactive does not exclude thepossibility of exposure to or infection with HIV-1 and/orHIV-2. Nonreactive results in this assay for individualswith prior exposure to HIV-1 and/or HIV-2 may be due toantigen and antibody levels that are below the limit ofdetection of this assay.The MarginLeft HIV Ag/Ab Combo assay result andsupplemental assay results should be interpreted inconjunction with the patient's clinical presentation,history and other laboratory results. If the results areinconsistent with clinical evidence, additional testing issuggested to confirm the result. Blood Venous blood specimen / Unknown 07/29/2023 11:24 AM EST 07/29/2023 1:21 PM EST us Elmer Arrington MD LAB BLOOD ORDERABLES Final Resul t Performing Organization Address City/[facility]/ZIP Co de Phone Number [facility] [address] [place] [phone] from Last 3 Months or Most Recently Relevant to Health Maintenance Insurance [place]ENT[place] - [place] F[place] (MEDICAID) Care Teams Digital Project Manager Relationship Specialty Start Date End Date Name, MD Elmer [address] [place] [phone] PCP - General Family Medicine 08/30/15
--- OUTSIDE RECORDS SUMMARY | 2025-02-03 14:46 | XMS_ITS | Encounter Summary ---
Author Organization [employer] Address [address] [place] [address] [address] [place] [address] Care Team Providers Care Physician [facility] Name Role Phone Name, Elmer MEDINA Primary Care Provider [phone] Encounter Details Date Type Department Care Team (Latest Contact Info) Description 03/04/2019 Abstract [facility] CONVERSIONS Dental, Provider, DDS Social History Tobacco Use Types Packs/Day Years [...] Description 05/31/2025 3:00 PM EST Office Visit [facility] ADULT DENTAL [address] [place] [address] Devi, Ann [address] [place] [address] documented as of this encounter Visit Diagnoses Not on filedocumented in this encounter Care Teams Physician [facility] Relationship Specialty Start Date End Date Name, MD Elmer [address] [place] [address] PCP - General Family Medicine 08/30/15 documented as of this encounter
--- OUTSIDE RECORDS SUMMARY | 2025-02-03 14:46 | XMS_ITS | Encounter Summary ---
Author Organization [employer] Address [address] [facility] [address]t [place] [address] Care Team Providers Care Exceptional Children Teacher Name Role Phone Name, Elmer MEDINA Primary Care Provider [phone] Reason for Visit * Reason Onset Date Comments calling back 12/30/2023 Encounter Details Date Type Department Care Team ([facility] st Contact Info) Description 12/30/2023 Telephone [facility] ADULT DENTAL [address] [place], [place] [phone] Ricco Rose DDS [address] [place] [address] calling back Social History Tobacco Use Types Packs/Day Years Used Date Smoking Tobacco: Every Day Cigarettes Smokeless Tobacco: Never Alcohol Use Standard Drinks/Week Comments Yes 0 (1 standard drink = 0.6 oz pur e alcohol) social Depression Answer Date Recorded Patient Health Questionnaire-9 Score 0 07/19/2022 Housing Stability Answer Date Recorded What is your housing situation today? I have jory mayfield 07/17/[address] you li ve. Do you have problems with any of the following? None of the above 07/17/2023 Food Insecurity Answer Date Recorded Within the past 12 months, y ou worried that your food would run out before you got money to buy more: Never True 07/17/2023 Within the past 12 months,th e food you bought just didn't last and you didn't have enough money to get more: Never True Transportation Answer Date Recorded In the past 12 months, has l ack of transportation kept you from medical appts, meetings, work or from getting things needed for daily living? No 07/17/2023 Utilities Answer Date Recorded In the past 12 months, has t he electric, gas, oil or water company threatened to shut off services in your home? No 07/17/2023 Depression Answer Date Recorded Patient Health Questionnaire-2 Score 0 07/29/2023 Sex and Gender Information Value Date Recorded Sex Assigned at Male 03/26/2022 10:18 AM EDT Legal Sex Male 10:18 AM EDT Gender Identity Male 03/26/2022 10:18 AM EDT Sexual Orientation Choose not to disclose 2021 10:18 AM EDT documented as of this encounter Miscellaneous Notes * Telephone Encounter - Lj Johnson - 12/30/2023 2:28 PM EDT Patient is calling back because he received a call but missed it to schedule an appt. Upstairs linewas busy so please call patient back to schedule. CS documented in this encounter Plan of Treatment Upcoming Encounters Date Type Department Care Team (Late st Contact Info) Description 05/31/2025 3:00 PM EST Office Visit [facility] ADULT DENTAL [address] [place] [address] Devi, Ann [address] [place] [address] documented as of this encounter Visit Diagnoses Not on filedocumented in this encounter Additional Health Concerns Assessment Noted Time PHQ-9 Depression Total Score: 0 07/19/19 23 11:35 AM EST documented as of this encounter Care Teams Exceptional Children Teacher Relationship Specialty Start Date End Date Name, MD Elmer [address] [place] [address] PCP - General Family Medicine 08/30/15 documented as of this encounter
--- OUTSIDE RECORDS SUMMARY | 2025-02-03 14:46 | XMS_ITS | Clinical Summary ---
Author Organization [facility] Address [address] [place] [address] Care Team Providers Care Senior Java Engineer Name Role Phone Name, Elmer Primary Care Provider [phone] Allergies No known active allergies Medications No known medications Active Problems Problem Noted Date Diagnosed Date Umbilical hernia without obstruction or gangrene 08/26/2023 Assessment & Plan (08/26/2023 2:01 PM EDT): Fat-containing umbilical hernia, only mildly symptomatic. No [...] hernia enlarges significantly and/or becomes more symptomatic. Social History Tobacco Use Types Packs/Day Years Used Date Smoking Tobacco: Some Days Cigarettes Smokeless Tobacco: Never Tobacco Cessation:Ready to Q uit: Not Asked; Counseling Given: Not Answered Sex and Gender Information Value Date Recorded Sex Assigned at Not on file Legal Sex Male 2:43 PM EDT Gender Identity Not on file Sexual Orientation Not on file Last Filed Vital Signs Vital Sign Reading Time Taken Comments Blood Pressure 144/89 08/26/2023 1:19 PM EDT Pulse 74 08/26/2023 1:19 PM EDT Temperature - - Respiratory Rate - - Oxygen Saturation - - Inhaled Oxygen Concentration - - Weight 91 kg (200 lb 9.9 oz) 08/26/2023 1:19 PM EDT Height - - Body Mass Index - - Plan of Treatment Health Maintenance Due Date Last Done Comments Hepatitis C Screening 1980 Varicella Vaccines (1 of 2 - 13+ 2-dose series) 1993 Hepatitis B Vaccines (1 of 3 - 19+ 3-dose series) 10/05/1999 Alcohol/Substance Use Screening 05/27/2024 Depression Screening and Follow-Up 05/27/2024 Social Drivers of Health Brianna ual Screening 05/27/2024 COVID-19 Vaccine (1 - 2023-2 5 season) 2025 Influenza Vaccine (#1) 2025 , 03/21/2021, 07/08/2017, Additional history exists DTaP,Tdap,and Td Vaccines (2 - Td or Tdap) 05/07/2026 05/07/2016 RSV Vaccine (60+ years old a nd patients) (1 - 1-dose 75+ series) 10/05/2055 HIV Screening Completed 07/29/2023, 07/29/2023 Pneumococcal Vaccine: Pediat rachael (0-5 Years) and At-Risk Patients (6-50 Years) Completed 07/29/2023, 07/08/2017 Insurance HSNO/FREE CARE Care Teams Senior Java Engineer Relationship Specialty Start Date End Date Name, Elmer [address] [place] [id number] PCP - General Internal Medicine 09/12/17
--- OUTSIDE RECORDS SUMMARY | 2025-02-03 14:46 | XMS_ITS | Encounter Summary ---
Author Organization [employer] Address [address] [place] [address] [address] [place] [address] Care Team Providers Care Receptionist Airline Lounge Name Role Phone Name, Elmer MEDINA Primary Care Provider [phone] Encounter Details Date Type Department Care Team (Latest Contact Info) Description 10/19/2021 Abstract [facility] CONVERSIONS Dental, Provider, DDS Social History [...] 05/31/2025 3:00 PM EST Office Visit [facility] [address] [place] [address] Devi, Ann [address] [place] [address] documented as of this encounter Visit Diagnoses Not on filedocumented in this encounter Care Teams Receptionist Airline Lounge Relationship Specialty Start Date End Date Name, MD Elmer [address] [place] [address] PCP - General Family Medicine 08/30/15 documented as of this encounter
== END 2025-02-03 11:35 | disposition home or self-care (01) ==
LOC: HO.HHCL 11:34
PROVIDERS: PCP Internal Medicine Geriatric Medicine; Visit Provider Internal Medicine Geriatric Medicine
DX: Z00.00 Encounter for general adult medical examination without abnormal findings (principal); M25.512 Pain in left shoulder
CPT/HCPCS: 36415; 73030; 80053; 80061

== ENCOUNTER → 2025-02-03 11:59 | Outpatient (BNV) | payer MEDICAID, SELFPAY | PROVIDERS: PCP Internal Medicine Geriatric Medicine; Visit Provider Radiology Diagnostic Radiology | DX: M25.512 Pain in left shoulder (principal) | CPT/HCPCS: 73030 ==